=== PATIENT | male | born 1960 ===

== ENCOUNTER 2021-03-06 19:47 | Emergency (ER) | payer OTHER, SELFPAY ==
[2021-03-06 19:54] VITALS: BP 165/81; RESP 14; TEMP 36.7; O2SAT 56
[2021-03-06 20:18] LABS: COVID19 -Nasal RAPID Negative (Negative)
--- NOTE | 2021-03-06 20:31 | ED.RECABL ---
HPI - Recheck/Abnormal Lab/Rx General Chief Complaint: Recheck/Abnormal Lab/Rx Stated Complaint: in need of covid vacc Time Seen by Provider: 03/06/21 19:58 Source: patient Mode of arrival: Ambulatory Limitations: no limitations History of Present Illness HPI narrative: 60-year-old male nonsmoker with noncontributory medical history presents with multiple family members and the request for a COVID test which would allow him to return home to [place]. He denies any exposure to persons with known or suspected COVID. He has no symptoms such as runny nose, sore throat or cough. He has no fever or chills. He denies any chest pain or shortness of breath. He had recently traveled from his home in [place] to the [facility] to [place]erry pick[place] [employer] with his 3 sons Related Data Allergies Allergy/AdvReac Type Severity Reaction Status Date / Time No Known Drug Allergies Allergy Verified 03/06/21 19:56 Review of Systems Review of Systems Narrative: see HPI Exam Narrative Exam Narrative: GEN: AOx3 and in mild distress EYES: Pupils are equal, round, and reactive to light and accommodation. Extraoccular muscles are intact bilaterally. There is no subconjunctival hemorrhage or exudate. CHEST: Lungs are clear to auscultation bilaterally and free of wheezes, rales, or rhonchi. Heart rate is regular rhythm, there are no murmurs, clicks, rubs, or gallops. There is no chest wall tenderness. ABD: Abdomen is soft and nontender. There is no guarding or rebound. Bowel sounds are normal in all 4 quadrants. There is no mass or organomegaly. EXT: Full painless ROM of all extremities with no loss of sensation or strength. SKIN: Warm, pink, and dry. No erythema or rash Initial Vital Signs Initial Vital Signs: Vital Signs Temperature 98.1 F 03/06/21 19:54 Respiratory Rate 14 03/06/21 19:54 Blood Pressure 165/81 H 03/06/21 19:54 Pulse Oximetry 56 L 03/06/21 19:54 Course Orders Ordered: ED Orders 03/06/21 19:58 COVID19 -Nasal swab/Pre-Proc Stat Vital Signs Vital signs: Vital Signs - 8 hr 03/06/21 19:54 Temperature 98.1 F Respiratory Rate 14 Blood Pressure 165/81 H Pulse Oximetry 56 L MDM - Recheck/Abnormal Lab/Rx Lab Data Labs: Lab Results 03/06/21 Range/Units 19:58 SARS-CoV-2 (PCR) Negative (Negative) Discharge Plan Departure Patient Disposition: Home Clinical Impression: Feared complaint without diagnosis Instructions: Can COVID-19 be prevented? Activity Restrictions/Additional Instructions: There is no evidence of an emergent or life threatening illness at this time, but follow up with your doctor in 1-2 days is recommended nonetheless to continue to rule out serious underlying causes of your symptoms. Please call the office for an appointment. Please return to the Emergency Department for any worsening or persistent symptoms. Please take medications as directed.
== END 2021-03-06 20:46 | disposition home or self-care (01) ==
PROVIDERS: Emergency Provider Emergency Medicine
DX: Z20.822 Contact with and (suspected) exposure to COVID-19 (principal)
CPT/HCPCS: 87635; 99281; C9803